=== PATIENT | male | born 1970 | race African-American/Black ===

== ENCOUNTER 2016-10-02 18:40 | Emergency (ER) | payer OTHER, BC ==
[~2016-10-02 18:40] MED LIST: ALLERGY SHOT IM; COZ50 PO; MULTIPLE VIT PO
== END 2016-10-02 19:00 | disposition home or self-care (01) ==
LOC: ER 18:40
DX: S76.312A Strain of muscle, fascia and tendon of the posterior muscle group at thigh level, left thigh, initial encounter (principal); N18.9 Chronic kidney disease, unspecified; Z79.899 Other long term (current) drug therapy; X58.XXXA Exposure to other specified factors, initial encounter
CPT/HCPCS: 99283; A9270-GY